=== PATIENT | female | born 1970 | race Caucasian/White ===

== ENCOUNTER 2023-06-03 16:57 | Emergency (ER) | payer BC ==
[~2023-06-03] VITALS: Ht 162.6 cm; Wt 66.2 kg
== END 2023-06-03 23:47 | disposition home or self-care (01) ==
LOC: ER 16:58
DX: S60.571A Other superficial bite of hand of right hand, initial encounter (principal); W55.01XA Bitten by cat, initial encounter; Y93.89 Activity, other specified; Y92.89 Other specified places as the place of occurrence of the external cause; Y99.9 Unspecified external cause status